=== PATIENT | male | born 1960 | race Caucasian/White ===

== ENCOUNTER 2020-04-02 10:43 | Emergency (ER) | payer OTHER ==
[~2020-04-02] VITALS: Ht 167.6 cm; Wt 97.5 kg
[2020-04-02] MEDS ORDERED: TACROLIMUS1 MG PO (11:01)
[2020-04-02] MEDS ORDERED: CELEXA40 MG PO (11:02)
[2020-04-02] MEDS ORDERED: MYCOPHENOLIC A360 MG PO (11:02)
[2020-04-02] MEDS ORDERED: KAPSPARGO SPRIN25 MG PO (11:03)
[2020-04-02] MEDS ORDERED: TOPROL XL25 MG PO (11:03)
[2020-04-02] MEDS ORDERED: NIFEDIPINE ER30 M1 PO (11:03)
[2020-04-02] MEDS ORDERED: NOVOLOG100 UNIT/M SUBQ (11:04)
[2020-04-02] MEDS ORDERED: PREDNISONE 5 MG5 M1 PO (11:04)
[2020-04-02] MEDS ORDERED: LANTUS SUBQ (11:04)
[2020-04-02 11:21] LABS: HEMATOCRIT 39.8 % (42.0-52.0); HEMOGLOBIN 13.6 gm/dL (14.0-18.0); MCHC 34.1 g/dL (28.0-37.0); MCV 96.8 fL (80.0-100.0); MPV 10.6 fl. (7.2-11.1); NUCLEATED RBCS 0 /100WBC; PLATELET COUNT* 86 thou/uL (150-400); RBC 4.11 mil/uL (4.50-6.00); RDW-CV 14.4 % (10.5-14.5); WBC 2.8 thou/uL (4.0-11.0)
[2020-04-02 11:30] LABS: CALCIUM 8.4 mg/dL (8.5-10.1); CREATININE 2.6 mg/dL (0.6-1.3)
[2020-04-02 11:31] LABS: POTASSIUM 2.8 mmol/L (3.5-5.1)
[2020-04-02 11:34] LABS: ALBUMIN 3.2 g/dL (3.4-5.0); TOTAL PROTEIN 7.4 g/dL (6.4-8.2)
[2020-04-02 11:49] LABS: ABSOLUTE MONOCYTES 0.1 thou/uL (0.0-1.2); ABSOLUTE NEUTROPHILS 1.7 thou/uL (1.6-8.1); ATYPICAL LYMPHS 9 %; METAMYELOCYTES 1 %; PLATELET ESTIMATE DECREASED
[2020-04-02 14:58] VITALS: BP 109/65
--- NOTE | 2020-04-03 17:52 | EKG ---
[place] [address] ELECTROCARDIOGRAM REPORT Name: ROSY SIMMONS Room: [facility]#: [id number] Admission: 04/02/20 Attend Phys: Discharge: 04/02/20 Date of : 56 Date of Service: 04/02/20 1105 Report #: [id number] THIS REPORT FOR: //name// [facility] ED Test Date: 2020-04-02 Test Time: 11:05:20 Pat Name: ROSY SIMMONS Department: Room: Gender: F[employer]ic: [facility] : 1960 Requested By: Fabio Dexter Order Number: [id number] MD: Juice Jorgensen Measurements Intervals [place] Rate: 75 P: 40 ME: 130 QRS: 44 QRSD: 109 T: 9 QT: 454 QTc: 508 Interpretive Statements Sinus rhythm Atrial premature complexes Prolonged QT interval No previous ECG available for comparison Electronically Signed On 04-03-2020 17:52:00 CDT by Juice Jorgensen [email or web address] <ELECTRONICALLY SIGNED> By: Juice Jorgensen MD, [facility] 04/03/20 1752 04 Juice Jorgensen MD, FACC /EPI
== END 2020-04-02 15:05 | disposition short-term general hospital (02) ==
LOC: M.ERS 10:43
PROVIDERS: Emergency Medicine Emergency Medical Services
DX: K52.9 Noninfective gastroenteritis and colitis, unspecified (principal); N19 Unspecified kidney failure; Z20.828 Contact with and (suspected) exposure to other viral communicable diseases; Z90.49 Acquired absence of other specified parts of digestive tract; E11.9 Type 2 diabetes mellitus without complications; Z79.4 Long term (current) use of insulin; Z94.0 Kidney transplant status